=== PATIENT | female | born 1960 | race Caucasian/White ===

== ENCOUNTER 2018-04-06 12:23 | Emergency (ER) | payer BC ==
[2018-04-06 12:28] VITALS: BP 153/87; PULSE 74; O2SAT 96
[2018-04-06] MEDS ORDERED: TORAdol 30 mg Injection IM ONE (12:48)
[2018-04-06] MEDS ORDERED: TORAdol 30 mg Injection ONE (12:57)
--- NOTE | 2018-04-06 13:37 | XRAY ---
Indication: Pain following fall. Comparison: None 2 views of the left humerus demonstrates comminuted impacted humeral head/neck fracture. No other bony, articular, or soft tissue abnormalities.
--- NOTE | 2018-04-06 13:40 | XRAY ---
Indication: Pain following fall. Comparison: None 3 views of the left shoulder demonstrates comminuted impacted humeral head/neck fracture. No other bony, articular, or soft tissue abnormalities.
--- NOTE | 2018-04-06 13:41 | ERPHSYRPT ---
- History of Present Illness Time Seen by Provider: 04/06/18 12:43 Source: patient Exam Limitations: no limitations Patient Subjective Stated Complaint: pt reports tripping and falling onto left shoulder-reports pain to extremity-denies numbness or tinlging Triage Nursing Assessment: pt pink warm and dry-no obvious deformity-radial pulse regular and strong Physician History: This is a 57-year-old white female she arrives with complaint of pain in her left shoulder symptoms since falling just prior to arrival. Patient states she was at home going outside to get her lunch and tripped landing on her left shoulder. She has pain in her left shoulder anteriorly and laterally. Past medical history includes high blood pressure, anxiety. Past surgical history includes appendectomy tonsillectomy hysterectomy she had a hysterectomy Occurred: just prior to arrival Method of Injury: fell Quality: constant Extremities Pain Location: shoulder: left, arm: left Modifying Factors: Improves With: movement Associated Symptoms: none Allergies/Adverse Reactions: No Known Drug Allergies Allergy (Verified 04/06/18 12:30) Home Medications: Citalopram Hydrobromide 20 mg* [ceLEXa 20 MG] 20 mg PO DAILY 05/06/15 [ History] Estradiol/Norethindrone Acet [Estradiol-Noreth 0.5-0.1 mg Tb] 0.5 mg PO DAILY [History] Lisinopril 20 mg [Zestril 20 MG] 20 mg PO DAILY 05/06/15 [History] Aspirin [Aspirin EC] 1 tab PO DAILY 05/13/15 [History] Hx Tetanus, Diphtheria Vaccination/Date Given: Yes Hx Influenza Vaccination/Date Given: Yes Hx Pneumococcal Vaccination/Date Given: No Immunizations Up to Date: Yes - Review of Systems Constitutional: No Fever, No Chills Eyes: No Symptoms Ears, Nose, & Throat: No Symptoms Respiratory: No Cough, No Dyspnea Cardiac: No Chest Pain, No Edema, No Syncope Abdominal/Gastrointestinal: No Abdominal Pain, No Nausea, No Vomiting, No Diarrhea Genitourinary Symptoms: No Dysuria Musculoskeletal: Other (pain in her left shoulder left arm) Skin: No Rash Neurological: No Dizziness, No Focal Weakness, No Sensory Changes Psychological: No Symptoms Endocrine: No Symptoms All Other Systems: Reviewed and Negative - Past Medical History Pertinent Past Medical History: Yes Neurological History: No Pertinent History ENT History: No Pertinent History Cardiac History: Hypertension Respiratory History: No Pertinent History Endocrine Medical History: No Pertinent History Musculoskeletal History: No Pertinent History GI Medical History: No Pertinent History History: No Pertinent History Psycho-Social History: Anxiety, Other Female Reproductive Disorders: No Pertinent History Other Medical History: anxiety/stress - Past Surgical History Past Surgical History: Yes Neuro Surgical History: No Pertinent History Cardiac: No Pertinent History Respiratory: No Pertinent History Gastrointestinal: Appendectomy Genitourinary: No Pertinent History Musculoskeletal: No Pertinent History Female Surgical History: Hysterectomy Other Surgical History: tonsillectomy - Social History Smoking Status: Never smoker Exposure to second hand smoke: No Drug Use: none Patient Lives Alone: No - Female History Hx Now: No - Nursing Vital Signs Nursing Vital Signs: Initial Vital Signs Temperature 98.8 F 04/06/18 12:27 Pulse Rate 74 04/06/18 12:27 Respiratory Rate 18 04/06/18 12:27 Blood Pressure 153/87 04/06/18 12:27 O2 Sat by Pulse Oximetry 96 04/06/18 12:27 Pain Scale Pain Intensity 8 - Physical Exam General Appearance: mild distress Eyes, Ears, Nose, Throat Exam: moist mucous membranes Neck Exam: non-tender, supple Cardiovascular/Respiratory Exam: chest non-tender, normal breath sounds, regular rate/rhythm, no respiratory distress Abdominal Exam: non-tender, No guarding Back Exam: normal inspection, No vertebral tenderness Shoulder Exam: No normal inspection (left shoulder tender with palpation anteriorly and laterally, decreased range of motion left shoulder secondary to pain.) Elbow/Forearm Exam: normal inspection, non-tender, no evidence of injury, normal ROM Wrist Exam: normal inspection, non-tender, no evidence of injury, normal ROM Hand Exam: normal inspection, non-tender, no evidence of injury, normal ROM DTR - Upper Extremity Exam: tricep (R): 2+, tricep (L): 2+ Neuro/Tendon Exam: normal sensation, normal motor functions Mental Status Exam: alert, oriented x 3, cooperative Skin Exam: normal color, warm, dry SpO2 Interpretation: normal (96%) SpO2: 96 Oxygen Delivery: Room Air - Course Nursing assessment & vital signs reviewed: Yes - Radiology Exams Left Humerus X-ray Interpretation: Discussed w/ radiologist (x-ray left shoulder:, comminuted impacted humeral head/neck fracture. No other bony, articular, or soft tissue abnormalities.) Left Shoulder X-ray Interpretation: Discussed w/ radiologist (x-ray left shoulder: Comminuted impacted humeral head/neck fracture. No other bony, articular, or soft tissue abnormalities.) Ordered Tests: Active Orders 24 hr Category Date Time Status Sling Application STAT Care 04/06/18 13:32 Active HUMERUS Stat Exams 04/06/18 12:48 Completed SHOULDER Stat Exams 04/06/18 12:48 Completed Medication Summary Discontinued Medications Generic Name Dose Route Start Last Admin Trade Name [place] PRN Reason Stop Dose Admin Ketorolac Tromethamine 60 mg 04/06/18 12:48 04/06/18 13:03 Toradol 30 Mg Injection IM 04/06/18 12:49 60 mg STAT ONE Administration Ketorolac Tromethamine Confirm 04/06/18 12:57 Toradol 30 Mg Injection Administered 04/06/18 12:58 Dose 60 mg .ROUTE .STK-MED ONE - Progress Progress: improved Progress Note: 04/06/18 13:43 57-year-old white female arrives with complaint of pain in her left shoulder since just prior to arrival. Patient states she slipped and landed on her left shoulder. She has pain with movement of her left shoulder and palpation of her left shoulder. X-ray of the left shoulder left humerus shows a comminuted impacted humeral head /neck fracture. Patient is given Toradol for pain with relief. Will place a sling on the patient's left arm, have patient remove her rings patient states she uses [facility] or for orthopedics Will make a call to his office. . 04/06/18 14:55 Dr. Brand is apparently out of office patient states she would like to see Dr. Cole. I've contacted Dr. Cole states that patient can follow-up with him on Wednesday alternatively and follow-up with Berenice Buitrago in his office tomorrow. Patient prefers to follow-up with Dr. Cole on Wednesday. Patient has been given a sling on the left arm Will write for prescription for [place]. Patient does not want a work slip other than no use of her left arm. Will accommodate her. - Departure Time of Disposition: 14:56 Departure Disposition: Home Clinical Impression: Fracture of humeral head, left, closed Qualifiers: Encounter type: initial encounter Qualified Code(s): S42.292A - Other displaced fracture of upper end of left humerus, initial encounter for closed fracture Condition: Fair Critical Care Time: No Referrals: SHEREE VELÁSQUEZ [Primary Care Provider] - Additional Instructions: Return home. Ice to left arm 24-48 hours. Use sling. Follow-up with Dr. Cole Wednesday call today to arrange appointment. Elgin 5/325 one orally every 4-6 hours as needed for pain. Return for acute distress or for severe symptoms. Prescriptions: Hydrocodone/Acetaminophen [Elgin 5-325 Tablet] 1 tab PO Q4-6HPRN PRN #14 tablet MDD 6 tablets PRN Reason: Pain
== END 2018-04-06 15:12 | disposition home or self-care (01) ==
LOC: ED 12:23
DX: S42.202A Unspecified fracture of upper end of left humerus, initial encounter for closed fracture (principal); W01.0XXA Fall on same level from slipping, tripping and stumbling without subsequent striking against object, initial encounter; Y93.9 Activity, unspecified; Y92.009 Unspecified place in unspecified non-institutional (private) residence as the place of occurrence of the external cause
CPT/HCPCS: 73030; 73060; 96372; 99284; J1885

== ENCOUNTER 2022-03-23 05:56 | Day surgery (SDC) | payer OTHER ==
[2022-03-23] MEDS ORDERED: Lactated Ringers 1,000 ML IV SCH (06:30)
[2022-03-23] MEDS ORDERED: DIPRIVAN 200 MG/20 ML IV ONE ×2 (06:56→07:09)
[2022-03-23] MEDS ORDERED: Xylocaine-Mpf 2% 5 Ml Vial ONE (06:56)
[2022-03-23] MEDS ORDERED: ATROPINE SULFATE 1MG ONE (07:09)
[2022-03-23 08:09] VITALS: PULSE 67; O2SAT 98
[2022-03-23 08:11] VITALS: BP 151/81
--- NOTE | 2022-03-23 13:31 | OP ---
SURGERY DATE/TIME: 03/23/2022 0659 PREOPERATIVE DIAGNOSIS: Screening exam. POSTOPERATIVE DIAGNOSIS: Moderate sigmoid diverticulosis. PROCEDURE: Colonoscopy. SURGEON: Dr. Kenny Douglas. ANESTHESIA: MAC. Medications given by anesthesia department. HISTORY: The patient is a 61-year-old white female presenting now for colonoscopic evaluation. The patient was appraised of the risks of the procedure including the risk of perforation, phlebitis, untoward reaction to medication, bleeding and missed lesions. The patient verbalized her understanding and desired to have the procedure performed. DESCRIPTION OF PROCEDURE: The patient was given the medications by the anesthesia department. She had continuous pulse oximetry, ECG monitoring, intermittent blood pressure monitoring during the examination. She was placed in the left lateral decubitus position. A digital rectal examination was performed and revealed normal anal sphincter tone and no masses. The flexible Olympus pediatric colonoscope was used to intubate the rectum. A view of the colon was developed sequentially to the cecum. Upon insertion and withdrawal it was noted moderate sigmoid diverticulosis but no other mucosal lesions encountered. The scope was removed from the patient who tolerated the procedure well and was sent back to OP recovery in good condition. The prep was noted to be fair to good.
== END 2022-03-23 08:24 | disposition home or self-care (01) ==
LOC: SDC 05:56
PROVIDERS: ATTEND Family Medicine
DX: Z12.11 Encounter for screening for malignant neoplasm of colon (principal); K57.30 Diverticulosis of large intestine without perforation or abscess without bleeding
CPT/HCPCS: J0461; J2704